=== PATIENT | male | born 1975 | race Two or more races ===

== ENCOUNTER 2018-07-17 08:32 | Emergency (ER) | payer SELFPAY ==
[~2018-07-17] VITALS: Ht 177.8 cm; Wt 113.4 kg
--- NOTE | 2018-07-17 08:51 | NUR ---
ED Nurse Note: Pt came in for rash on his left forearm that started 3 days ago. Redness noted and warmth. Pt does not know how it started. Pt complains that it is itchy but no pain. A + O x4. Ambulatory. Son at the bedside.
[2018-07-17 08:52] VITALS: BP 140/75
[2018-07-17] MEDS ORDERED: KENALOG 0.5% CR15 GM APPLIC (09:04)
[2018-07-17] MEDS ORDERED: DIPHENHYDRAMINE25 M1 ORAL (09:04)
[2018-07-17 09:08] VITALS: BP 127/97
--- NOTE | 2018-07-17 09:09 | NUR ---
ED Nurse Note: Discharge instructions given to pt. Answered all questions. Verbalized understanding. A + O x4. Ambulatory. ID band and Iv site removed. Left with all belongings. Left ER w/ steady gait.
--- NOTE | 2018-07-17 09:45 | Emergency Room Report ---
History of Present Illness General Chief Complaint: Skin Rash/Abscess Source: Patient Present Illness HPI 42-year-old male presents ED for evaluation. Complaining of rash 3 days. States there is a rash on his hands, elbow, neck. States it is itchy. Denies any pain. Denies any fevers or chills. Denies any known food or drug allergies. Denies any sick contacts or recent travel. Denies any recent exposure that could explain the rash. No other aggravating relieving factors. Denies any other associated symptoms Allergies: Coded Allergies: No Known Allergies (Unverified , 07/17/18) Patient History Past Medical History: asthma Past Surgical History: none Pertinent Family History: none Social History: Denies: smoking, alcohol use, drug use Immunizations: UTD Reviewed Nursing Documentation: PMH: Agreed; PSxH: Agreed Nursing Documentation-PMH Past Medical History: No History, Except For Hx Asthma: Yes - PNA Review of Systems All Other Systems: negative except mentioned in HPI Physical Exam Vital Signs Date Time Temp Pulse Resp B/P (MAP) Pulse Ox O2 Delivery O2 Flow Rate FiO2 07/17/18 08:39 98.8 83 20 141/75 96 Room Air Sp02 EP Interpretation: reviewed, normal General Appearance: no apparent distress, alert, GCS 15, non-toxic Head: normocephalic Eyes: bilateral eye normal inspection, bilateral eye PERRL ENT: normal ENT inspection Neck: normal inspection Respiratory: normal inspection Cardiovascular #1: normal inspection Gastrointestinal: normal inspection Rectal: deferred Genitourinary: no CVA tenderness Musculoskeletal: normal inspection Neurologic: alert, oriented x3, responsive, motor strength/tone normal, sensory intact, speech normal Psychiatric: normal inspection Skin: rash - erythematous rash to neck, flexor surfaces elbows, hands. nonerythematous base. no fluctuance or discharge Lymphatic: normal inspection Medical Decision Making Diagnostic Impression: Primary Impression: Rash and other nonspecific skin eruption ER Course Hospital Course 42-year-old male presents to ED with rash to neck, hands, elbows Differential diagnoses include: Cellulitis, dermatitis, insect bite, abscess Clinical course Patient placed on stretcher. After initial history, physical exam reveals a male in no acute distress. On exam there is a fine papular rash noted on the neck, extensor surfaces of the elbows, hands. On erythematous base. Did not appear like urticaria. Vital stable. No signs of distress. Unlikely allergic reaction. Consideration for eczema with asthma history. Discussed findings with patient. We'll prescribe Benadryl, triamcinolone. Recommend follow-up with dermatology as outpatient. We'll provide referrals Diagnosis - rash stable and discharged to home with prescription for triamcinolone, benedryl. Instructed to followup with PMD/derm. Instructed return to ED if symptoms recur or worsen Last Vital Signs Date Time Temp Pulse Resp B/P (MAP) Pulse Ox O2 Delivery O2 Flow Rate FiO2 07/17/18 09:08 97.6 87 22 127/97 98 Room Air Status: improved Disposition: HOME, SELF-CARE Condition: Stable Scripts Diphenhydramine Hcl* (DIPHENHYDRAMINE HCL*) 25 Mg Capsule 25 MG ORAL Q6H PRN for Itching, #30 CAP 0 Refills Prov: Jerrod Lara MD 07/17/18 Triamcinolone Acet (Triamcinolone Acetonide) 15 Gm Cream..g. 15 GM APPLIC BID, #15 GM Prov: Jerrod Lara MD 07/17/18 Referrals: NOT CHOSEN IPA/,REFERRING (PCP) [facility] Keyshawn Canseco [facility] Patient Instructions: Eczema, Rash Jerrod Lara MD Jul 17, 2018 09:45
== END 2018-07-17 09:09 | disposition home or self-care (01) ==
LOC: EMR 09:00
DX: R21 Rash and other nonspecific skin eruption (principal)
CPT/HCPCS: 99282

== ENCOUNTER 2018-10-07 06:38 | Emergency (ER) | payer MEDICAID ==
[~2018-10-07] VITALS: Ht 177.8 cm; Wt 108.9 kg
[~2018-10-07 06:38] MED LIST: DIPHENHYDRAMINE25 M1 ORAL; KENALOG 0.5% CR15 GM APPLIC
[2018-10-07] MEDS ORDERED: NKM (06:46)
--- NOTE | 2018-10-07 06:48 | NUR ---
ED Nurse Note: Sharp left sided chest pains with BUE numbness x10 days along with "pain on left lung for a long time." Pt states he inhaled a piece of plastic approx 3-4 years ago while doing drugs. Pt is AO x 4times, VSS, on room air no distress. BRANDYND seen Pt at bedside.
[2018-10-07 06:49] VITALS: BP 134/81
--- NOTE | 2018-10-07 07:01 | NUR ---
ED Nurse Note: urine and blood sample sent to lab.
[2018-10-07 07:07] LABS: BASOPHILS % (AUTO) 1.2 % (0.0-2.0); EOSINOPHILS % (AUTO) 3.5 % (0.0-3.0); HEMATOCRIT 51.2 % (42.0-52.0); HEMOGLOBIN 16.9 G/DL (14.2-18.0); LYMPHOCYTES % (AUTO) 37.3 % (20.0-45.0); MEAN CORPUSCULAR VOLUME 87 FL (80-99); MONOCYTES % (AUTO) 8.1 % (1.0-10.0); NEUTROPHILS % (AUTO) 49.9 % (45.0-75.0); PLATELET COUNT 261 K/UL (150-450); RED BLOOD COUNT 5.87 M/UL (4.70-6.10)
--- NOTE | 2018-10-07 07:07 | NUR ---
HAND-OFF: Report given to Meryl JARVIS.
[2018-10-07 07:10] VITALS: BP 136/86
--- NOTE | 2018-10-07 07:10 | NUR ---
ED Nurse Note: Received patient in bed without signs and symptoms of cardiac or pulmonary distress. Blood and urine were sent to lab and waiting for the results to come back at this moment. Patient was introduced with nurse in new shift started.
[2018-10-07 07:18] LABS: APPEARANCE,URINE CLEAR; BILIRUBIN, URINE NEGATIVE (NEGATIVE); COLOR,URINE PALE YELLOW; GLUCOSE, URINE (UA) NEGATIVE (NEGATIVE); KETONES,URINE NEGATIVE (NEGATIVE); LEUKOCYTE ESTERASE ,URINE NEGATIVE (NEGATIVE); NITRITE,URINE NEGATIVE (NEGATIVE); PH,URINE 5 (4.5-8.0); PROTEIN,URINE NEGATIVE (NEGATIVE); UROBILINOGEN,URINE NORMAL MG/DL (0.0-1.0)
[2018-10-07 07:21] LABS: ANION GAP 11 mmol/L (5-15); BLOOD UREA NITROGEN 16 mg/dL (7-18); CARBON DIOXIDE 28 MMOL/L (21-32); CHLORIDE 103 MMOL/L (98-107); CREATININE 1.3 MG/DL (0.55-1.30); POTASSIUM 4.4 MMOL/L (3.5-5.1); SODIUM 142 MMOL/L (136-145)
--- NOTE | 2018-10-07 07:21 | Emergency Room Report ---
History of Present Illness General Chief Complaint: Chest Pain Source: Patient Present Illness HPI This patient states that for the past week he has had ongoing left-sided chest pain. He denies recent illness. He denies cough or congestion. He denies shortness of breath. He denies fever or chills. He denies abdominal pain. He denies nausea or vomiting. He denies trauma. He denies onset with exertion. He cannot identify any exacerbating or relieving symptoms. He does have a history of methamphetamine use. He states he hasn't used methamphetamine in about 4 months. He denies tobacco or alcohol use or any other drug use. He has no other complaints. Allergies: Coded Allergies: No Known Allergies (Unverified , 07/17/18) Patient History Past Medical History: none, see triage record Social History: Reports: drug use; Denies: smoking, alcohol use Reviewed Nursing Documentation: PMH: Agreed; PSxH: Agreed Nursing Documentation-PMH Past Medical History: No History, Except For Hx Asthma: Yes - PNA Review of Systems All Other Systems: negative except mentioned in HPI Physical Exam Vital Signs Date Time Temp Pulse Resp B/P (MAP) Pulse Ox O2 Delivery O2 Flow Rate FiO2 10/07/18 06:40 98.2 66 19 131/87 97 Room Air Sp02 EP Interpretation: reviewed, normal General Appearance: no apparent distress, alert, GCS 15, non-toxic, obese Head: normocephalic, atraumatic Eyes: bilateral eye normal inspection, bilateral eye PERRL ENT: hearing grossly normal, normal pharynx, no angioedema, normal voice Neck: full range of motion, supple/symm/no masses Respiratory: chest non-tender, lungs clear, normal breath sounds, no respiratory distress, no retraction, no accessory muscle use, speaking full sentences Cardiovascular #1: regular rate, rhythm, no edema Gastrointestinal: normal bowel sounds, non tender, soft, non-distended, no guarding, no rebound Rectal: deferred Musculoskeletal: back normal, gait/station normal, normal range of motion, non- tender Neurologic: alert, oriented x3, responsive, motor strength/tone normal, sensory intact, speech normal Psychiatric: judgement/insight normal, memory normal, mood/affect normal, no suicidal/homicidal ideation Skin: normal color, no rash, warm/dry, well hydrated Medical Decision Making Diagnostic Impression: Primary Impression: Chest pain ER Course This patient has nonspecific chest pain. Given the length of symptoms, this workup is very reassuring with negative cardiac enzymes, normal EKG, and normal chest x-ray. The patient is low risk and his symptoms are atypical for acute coronary syndrome. I have very low suspicion for PE, aortic dissection or pneumothorax based on history/physical, laboratory and radiologic workup. The patient does eat a lot of spicy foods. He was educated on the signs and symptoms of GERD and gastritis. He is educated to decrease the amount of spicy foods that he eats. I will also treat him presumptively for GERD and esophagitis. The patient was given close return precautions and followup instructions. Laboratory Tests Test 10/07/18 06:55 White Blood Count 7.0 K/UL (4.8-10.8) Red Blood Count 5.87 M/UL (4.70-6.10) Hemoglobin 16.9 G/DL (14.2-18.0) Hematocrit 51.2 % (42.0-52.0) Mean Corpuscular Volume 87 FL (80-99) Mean Corpuscular Hemoglobin 28.7 PG (27.0-31.0) Mean Corpuscular Hemoglobin Concent 32.9 G/DL (32.0-36.0) Red Cell Distribution Width 13.0 % (11.6-14.8) Platelet Count 261 K/UL (150-450) Mean Platelet Volume 5.7 FL (6.5-10.1) L Neutrophils (%) (Auto) 49.9 % (45.0-75.0) Lymphocytes (%) (Auto) 37.3 % (20.0-45.0) Monocytes (%) (Auto) 8.1 % (1.0-10.0) Eosinophils (%) (Auto) 3.5 % (0.0-3.0) H Basophils (%) (Auto) 1.2 % (0.0-2.0) Prothrombin Time 10.6 SEC (9.30-11.50) Prothrombin Time INR 1.0 (0.9-1.1) PTT 29 SEC (23-33) Urine Color Pale yellow Urine Appearance Clear Urine pH 5 (4.5-8.0) Urine Specific [place] 1.025 (1.005-1.035) Urine Protein Negative (NEGATIVE) Urine Glucose (UA) Negative (NEGATIVE) Urine Ketones Negative (NEGATIVE) Urine Blood Negative (NEGATIVE) Urine Nitrite Negative (NEGATIVE) Urine Bilirubin Negative (NEGATIVE) Urine Urobilinogen Normal MG/DL (0.0-1.0) Urine Leukocyte Esterase Negative (NEGATIVE) Sodium Level 142 MMOL/L (136-145) Potassium Level 4.4 MMOL/L (3.5-5.1) Chloride Level 103 MMOL/L (98-107) Carbon Dioxide Level 28 MMOL/L (21-32) Anion Gap 11 mmol/L (5-15) Blood Urea Nitrogen 16 mg/dL (7-18) Creatinine 1.3 MG/DL (0.55-1.30) Estimate Glomerular Filtration Rate > 60 mL/min (>60) Glucose Level 97 MG/DL (74-106) Calcium Level 9.0 MG/DL (8.5-10.1) Total Bilirubin 0.4 MG/DL (0.2-1.0) Aspartate Amino Transferase (AST) 16 U/L (15-37) Alanine Aminotransferase (ALT) 32 U/L (12-78) Alkaline Phosphatase 88 U/L (46-116) Total Creatine Kinase 62 U/L (26-308) Creatine Kinase MB 0.7 NG/ML (0.0-3.6) Creatine Kinase MB Relative Index 1.1 Troponin I 0.003 ng/mL (0.000-0.056) Total Protein 8.2 G/DL (6.4-8.2) Albumin 4.0 G/DL (3.4-5.0) Globulin 4.2 g/dL Albumin/Globulin Ratio 1.0 (1.0-2.7) Urine Opiates Screen Negative (NEGATIVE) Urine Barbiturates Screen Negative (NEGATIVE) Phencyclidine (PCP) Screen Negative (NEGATIVE) Urine Amphetamines Screen Negative (NEGATIVE) Urine Benzodiazepines Screen Negative (NEGATIVE) Urine Cocaine Screen Negative (NEGATIVE) Urine Marijuana (THC) Screen Negative (NEGATIVE) EKG Diagnostic Results Rate: normal Rhythm: NSR ST Segments: no acute changes Rhythm Strip Diag. Results EP Interpretation: yes Rate: 60's Rhythm: NSR, no PVC's, no ectopy Chest X-Ray Diagnostic Results Chest X-Ray Diagnostic Results : Chest X-Ray Ordered: Yes # of Views/Limited/Complete: 1 View Indication: Chest Pain EP Interpretation: Yes Interpretation: no consolidation, no effusion, no pneumothorax, no acute cardiopulmonary disease Impression: No acute disease Electronically Signed by: Lolly Morris DO Last Vital Signs Date Time Temp Pulse Resp B/P (MAP) Pulse Ox O2 Delivery O2 Flow Rate FiO2 10/07/18 06:49 70 19 Room Air 10/07/18 06:49 97.9 134/81 97 Status: improved Disposition: HOME, SELF-CARE Condition: Improved Patient Instructions: Nonspecific Chest Pain Lolly Morris DO Oct 07, 2018 07:21
[2018-10-07] MEDS ORDERED: Lidocaine 2% Visc 15ml soln ORAL ONE (07:30)
[2018-10-07 07:34] LABS: ALANINE AMINOTRANSFERASE 32 U/L (12-78); ALKALINE PHOSPHATASE 88 U/L (46-116); ASPARTATE AMINO TRANSFERASE 16 U/L (15-37); BILIRUBIN,TOTAL 0.4 MG/DL (0.2-1.0); CKMB 0.7 NG/ML (0.0-3.6); CREATINE KINASE 62 U/L (26-308)
--- NOTE | 2018-10-07 08:49 | NUR ---
ED Nurse Note: HAYDEN is speaking to patient regarding the results of blood work, chest x-ray, and urine at the bedside.
[2018-10-07] MEDS ORDERED: MAALOX MAXIMUM355 M1 PO (08:55)
[2018-10-07] MEDS ORDERED: RANITIDINE HCL150 MG ORAL (08:55)
[2018-10-07 09:10] VITALS: BP 136/88
--- NOTE | 2018-10-07 09:10 | NUR ---
ER DISCHARGE NOTE: Patient is cleared to be discharged per ERMD, pt is aox4, on room air, with stable vital signs. Patient was given discharge instructions and prescriptions were sent to the pharmacy electronically and the pharmacy information was given with paper, pt was able to verbalize understanding, patient id band and iv site removed without complications. Patient is able to ambulate with steady gait. Patient took all belongings.
--- NOTE | 2018-10-08 19:14 | Cardiology Report ---
APPROVED REPORT EKG Measurement Heart [id number] Normal sinus rhythm Normal ECG
== END 2018-10-07 09:10 | disposition home or self-care (01) ==
LOC: EMR 07:15
DX: R07.9 Chest pain, unspecified (principal); J45.909 Unspecified asthma, uncomplicated
CPT/HCPCS: 36415; 71045; 80053; 80307; 81003; 82550; 82553; 84484; 85025; 85610; 85730; 93005; 96374; 99284; S0028

== ENCOUNTER 2019-02-15 01:19 | Emergency (ER) | payer MEDICAID ==
[~2019-02-15] VITALS: Ht 172.7 cm; Wt 117.9 kg
[~2019-02-15 01:19] MED LIST changes: +MAALOX MAXIMUM355 M1 PO; +NKM; +RANITIDINE HCL150 MG ORAL
[2019-02-15 01:25] VITALS: BP 139/90
--- NOTE | 2019-02-15 01:25 | NUR ---
ED Nurse Note: pt walked in to ED c/O palpatation for about a week. denies any chest pain. bp 139/90, hr 70, rr 20. pt alert x4.
[2019-02-15 02:12] LABS: BASOPHILS % (AUTO) 1.6 % (0.0-2.0); EOSINOPHILS % (AUTO) 3.6 % (0.0-3.0); HEMOGLOBIN 16.9 G/DL (14.2-18.0); LYMPHOCYTES % (AUTO) 38.4 % (20.0-45.0); MEAN CORPUSCULAR VOLUME 87 FL (80-99); MONOCYTES % (AUTO) 8.2 % (1.0-10.0); NEUTROPHILS % (AUTO) 48.3 % (45.0-75.0); PLATELET COUNT 303 K/UL (150-450); RED BLOOD COUNT 5.85 M/UL (4.70-6.10); RED CELL DISTRIBUTION WIDTH 12.9 % (11.6-14.8); WHITE BLOOD COUNT 6.7 K/UL (4.8-10.8)
[2019-02-15 02:17] LABS: ANION GAP 6 mmol/L (5-15); BLOOD UREA NITROGEN 13 mg/dL (7-18); CALCIUM 8.5 MG/DL (8.5-10.1); CARBON DIOXIDE 28 MMOL/L (21-32); CHLORIDE 105 MMOL/L (98-107); POTASSIUM 3.4 MMOL/L (3.5-5.1); SODIUM 139 MMOL/L (136-145)
[2019-02-15 02:30] LABS: ALANINE AMINOTRANSFERASE 29 U/L (12-78); ALBUMIN 3.9 G/DL (3.4-5.0); ALKALINE PHOSPHATASE 109 U/L (46-116); ASPARTATE AMINO TRANSFERASE 18 U/L (15-37); BILIRUBIN,TOTAL 0.3 MG/DL (0.2-1.0); CKMB 0.9 NG/ML (0.0-3.6); CREATINE KINASE 134 U/L (26-308)
--- NOTE | 2019-02-15 02:32 | Emergency Room Report ---
History of Present Illness General Chief Complaint: Palpitations Source: Patient Present Illness HPI HPI: 43-year-old male with a history of hypertension and former tobacco use presents for evaluation of palpitations. Symptoms have been ongoing for greater than 1 week and describes an irregular heartbeat where he will feel his heart skipping beats. He denies any tachycardia, chest pain, difficulty breathing, lightheadedness, vision changes, new neck or back pain, diaphoresis, nausea, vomiting or any other changes in his health. He does not restrict his activities and is not exertional in nature. Patient has no known cardiac disease and no family history of arrhythmias. No new medications were started. He denies any alcohol abuse, illicit drug use but states he does drink a lot of caffeine. PMH: Hypertension, asthma PSH: Denies Allergies: None Social Hx: Occasional alcohol use, former tobacco use, denies drug use Allergies: Coded Allergies: No Known Allergies (Unverified , 07/17/18) Nursing Documentation-PMH Past Medical History: No History, Except For Hx Asthma: Yes Review of Systems All Other Systems: negative except mentioned in HPI Physical Exam Vital Signs Date Time Temp Pulse Resp B/P (MAP) Pulse Ox O2 Delivery O2 Flow Rate FiO2 02/15/19 01:22 98.4 74 18 141/98 (112) 98 Room Air General: Awake and alert, no acute distress HEENT: NC/AT. EOMI. PERRLA. Moist mucous membranes Neck: Supple, trachea midline Chest Wall: No tenderness, no deformity Cardiovascular: I regular rate and rhythm with occasional premature beats. S1 and S2 normal. No murmur appreciated Resp: Normal work of breathing. No cough, wheezing or crackles appreciated Abdomen: Abdomen is soft, nondistended. Nontender Skin: Intact. No abrasions, laceration or rash over the exposed skin MSK: Normal tone and bulk. Moving all extremities. No obvious deformity. No unilateral calf swelling or tenderness. Neuro: Awake and alert. Mentating appropriately. Medical Decision Making Diagnostic Impression: Primary Impression: Palpitations ER Course 43-year-old male presents for evaluation of 1 week palpitations. His exam does show an irregular rhythm and EKG shows a sinus rhythm with very slight ST segment changes in the anterior leads consistent with early repolarization. There are no reciprocal changes The patient is denying any chest pain now or previously. His monitor does show instances of bigeminy versus PAC and other instances where his heart rate appears irregularly irregular more consistent with fibrillation however was unable to capture this on ekg to fully evaluate. We will obtain labs including cardiac enzymes and electrolytes. Overall, he is very stable physical exam is reassuring. EKG Diagnostic Results EKG Time: 01:38 Rate: normal Rhythm: NSR Other Impression Slight ST changes in the anterior leads consistent with early repolarization. No reciprocal depressions. Single T wave inversion III. No prior for comparison. Rhythm Strip Diag. Results Rhythm Strip Time: :38 Rate: 68 Other Impression Intermittent episodes of what appears to be either bigeminy or premature atrial complexes. Otherwise, normal sinus rhythm to sinus bradycardia Chest X-Ray Diagnostic Results Chest X-Ray Diagnostic Results : # of Views/Limited/Complete: 1 View Indication: Chest Pain EP Interpretation: Yes Impression: No acute disease Electronically Signed by: Electronically signed by Dr. Ronnie Eric Reevaluation Time: 03:38 Last Vital Signs Date Time Temp Pulse Resp B/P (MAP) Pulse Ox O2 Delivery O2 Flow Rate FiO2 02/15/19 01:25 98.4 70 20 139/90 98 Room Air Status: unchanged Reevaluation Impression Labs returned largely unremarkable. Troponin is negative. Chest x-ray shows no acute disease, no infiltrates. Multiple EKG shows sinus rhythm with similar morphology. There are occasional premature atrial complex versus 1-2 beats of bigeminy. There are no ischemic changes on these EKGs. The patient is chest pain-free though he does feel occasional palpitations still. This may be related to his excessive caffeine intake and I have encouraged him to reduce his caffeine but we also refer him to cardiology for further evaluation of these palpitations. I will refill his albuterol inhaler at his request though he has no respiratory symptoms at this time. We will discharge the patient home for outpatient follow-up and given the names of several clinics in the area to establish himself as a new primary care patient. We discussed strict return precautions and he understands the reasons to return to the emergency department. He will be discharged home. Please note that this report is being documented using Circular technology. This can lead to erroneous entry secondary to incorrect interpretation by the dictating instrument. Disposition: HOME, SELF-CARE Condition: Stable Referrals: NOT CHOSEN IPA/,REFERRING (PCP) Ronnie Eric MD Feb 15, 2019 02:32
--- NOTE | 2019-02-15 03:16 | Diagnostic Imaging Report ---
EXAM: XR Chest, 1 View CLINICAL HISTORY: CP TECHNIQUE: Frontal view of the chest. COMPARISON: 10/07/18 FINDINGS: Lungs: Unremarkable. No consolidation. Pleural space: Unremarkable. No pneumothorax. Heart: Unremarkable. No cardiomegaly. Mediastinum: Unremarkable. Bones/joints: Unremarkable. IMPRESSION: No acute findings or change
[2019-02-15] MEDS ORDERED: ALBUTEROL SULF8.5 GM INH ×2 (03:50→03:53)
[2019-02-15 03:55] VITALS: BP 128/84
--- NOTE | 2019-02-15 03:55 | NUR ---
ER DISCHARGE NOTE: Patient is cleared to be discharged per ERMD, pt is aox4, on room air, with stable vital signs. pt was given dc instructions, pt was able to verbalize understanding, pt id band and iv site removed without complications. pt is able to ambulate with steady gait. pt took all belongings.
== END 2019-02-15 03:55 | disposition home or self-care (01) ==
LOC: EMR 02:01
DX: R00.2 Palpitations (principal); J45.909 Unspecified asthma, uncomplicated; Z87.891 Personal history of nicotine dependence; I10 Essential (primary) hypertension
CPT/HCPCS: 36415; 71045; 80053; 82550; 82553; 84484; 85025; 93005; 99284